=== PATIENT | male | born 1975 | race Caucasian/White ===

== ENCOUNTER 2019-06-04 21:13 | Emergency (ER) | payer OTHER ==
[2019-06-04 21:28] VITALS: BP 145/81; PULSE 105; TEMP 98.5
[2019-06-04] MEDS ORDERED: DIPHTH,PERTUSS(ACELL),TET 0.5 ML DISP.SYRIN IM ONE ×2 (21:28→21:41)
--- NOTE | 2019-06-04 21:28 | PDOC ---
Rapid Medical Evaluation Time Seen by Provider: 06/04/19 21:26 Medical Evaluation: Allergies Allergy/AdvReac Type Severity Reaction Status Date / Time No Known Allergies Allergy Verified 01/04/12 14:13 06/04/19 21:26 The patient is a 43 y/o M with PMH of NIDDM, HTN presents for a laceration to his L thumb. Pt is L handed. Pt states he cut it on a piece of metal when taking the garbage out. Does not remember last tetanus shot. Exam: 2 cm laceration to the medial L thumb, bleeding controlled Orders: boostrix Pt to proceed to the ER for further evaluation Discharge Disposition - Diagnosis Laceration - Referrals - Patient Instructions - Post Discharge Activity
[2019-06-04] MEDS ORDERED: ACETAMINOPHEN 500 MG TABLET (FP) PO ONE (22:21)
[2019-06-04] MEDS ORDERED: ACETAMINOPHEN 325 MG TABLET (FP) ONE ×2 (22:22→22:23)
--- NOTE | 2019-06-04 22:23 | PDOC ---
History of Present Illness - General Chief Complaint: Laceration Stated Complaint: LACERTION Time Seen by Provider: 06/04/19 21:26 - History of Present Illness Initial Comments: 06/04/19 22:18 43-year-old male with a past medical history of diabetes and hypertension, he states he takes no meds presents for evaluation of a left thumb laceration. He was throwing out trash and lacerated his left thumb on the middle trash can. He is not current on tetanus. Past History - Past Medical History Allergies/Adverse Reactions: Allergies Allergy/AdvReac Type Severity Reaction Status Date / Time No Known Allergies Allergy Verified 06/04/19 21:26 Home Medications: Ambulatory Orders Ibuprofen [Motrin] 600 mg PO Q6H PRN #20 tablet 01/04/12 COPD: No Diabetes: Yes HTN: Yes - Immunization History Immunization Up to Date: Yes - Suicide/Smoking/Psychosocial Hx Smoking Status: No Smoking History: Never smoked Number of Cigarettes Smoked Daily: 0 Review of Systems - Review of Systems Musculoskeletal: Yes: See HPI *Physical Exam - Vital Signs Last Vital Signs Temp Pulse Resp BP Pulse Ox 98.5 F 105 H 18 145/81 97 06/04/19 21:26 06/04/19 21:26 06/04/19 21:26 06/04/19 21:26 06/04/19 21:26 - Physical Exam Comments: 06/04/19 22:19 Left thumb skin color and temperature are normal. There is a L-shaped laceration on the ulnar aspect of the left thumb just distal to the IPJ. There are no gross sensorimotor deficits. Subcutaneous fat is exposed. ED Treatment Course - Medications Given in the ED: ED Medications Discontinued Medications Generic Name Dose Route Start Last Admin Trade Name Freq PRN Reason Stop Dose Admin Diphtheria/Tetanus/Acell Pertussis 0.5 ml 06/04/19 21:28 06/04/19 21:42 Boostrix - IM 06/04/19 21:29 0.5 ml .ONCE ONE Administration Medical Decision Making - Medical Decision Making 06/04/19 22:20 Aseptically, the wound was anesthetized with 1% lidocaine without epinephrine copiously irrigated explored to its base in a bloodless field without identification of foreign body. The wound edges were approximated with 3-0 nylon in a simple interrupted fashion. A dry sterile dressing was placed. This was tolerated well. *DC/Admit/Observation/Transfer Diagnosis at time of Disposition: Laceration - Discharge Dispostion Disposition: HOME Condition at time of disposition: Stable Decision to Admit order: No - Referrals Referrals: El Vargas MD [Staff Physician] - - Patient Instructions Additional Instructions: Please keep the wound clean and dry and the dressing intact for the next 48 hours. After 48 hours remove the dressing and wash the area with soap and water. Leave the area open to air as much as possible if you must go out of the house or work please cover the area with a dry sterile dressing such as a Band- Aid. Do not apply any ointments or creams. Return to the emergency room there be any increasing pain, redness, swelling, or drainage. These may be signs of infection. Suture removal in no less than 10 days He may also follow-up with hand surgery in one to 2 days for a wound check should you have any concerns. Tylenol and motrin as directed for pain control - Post Discharge Activity
== END 2019-06-04 22:28 | disposition home or self-care (01) ==
LOC: JERFT 21:13
PROC: 3E0234Z Introduction of Serum, Toxoid and Vaccine into Muscle, Percutaneous Approach (ICD-10-PCS; principal; 2019-06-04)
PROC: 0HQGXZZ Repair Left Hand Skin, External Approach (ICD-10-PCS; 2019-06-04)
DX: S61.012A Laceration without foreign body of left thumb without damage to nail, initial encounter (principal); W26.8XXA Contact with other sharp object(s), not elsewhere classified, initial encounter; Y93.89 Activity, other specified; Y92.89 Other specified places as the place of occurrence of the external cause; E11.9 Type 2 diabetes mellitus without complications; I10 Essential (primary) hypertension
CPT/HCPCS: 90715; 99281-25

== ENCOUNTER 2019-06-13 15:20 | Emergency (ER) | payer OTHER ==
[2019-06-13 15:45] VITALS: BP 149/77; PULSE 80; TEMP 98.7; BMI 30.9
--- NOTE | 2019-06-13 15:55 | PDOC ---
History of Present Illness - General Chief Complaint: Suture/Staple Removal(Here) Stated Complaint: SUTURE REMOVAL/rash Time Seen by Provider: 06/13/19 15:46 History Source: Patient Past History - Past Medical History Allergies/Adverse Reactions: Allergies Allergy/AdvReac Type Severity Reaction Status Date / Time No Known Allergies Allergy Verified 06/04/19 21:26 Home Medications: Ambulatory Orders Ibuprofen [Motrin] 600 mg PO Q6H PRN #20 tablet 01/04/12 Cephalexin [Keflex] 500 mg PO Q6H #28 capsule 06/13/19 Clobetasol Propionate/Emoll [Clobetasol Emollient 0.05% Crm] 45 gm TP BID #1 cream..g. 06/13/19 Metformin HCl [Glucophage] 500 mg PO BID #60 tablet 06/13/19 COPD: No Diabetes: Yes HTN: Yes - Immunization History Immunization Up to Date: Yes - Suicide/Smoking/Psychosocial Hx Smoking Status: No Smoking History: Never smoked Have you smoked in the past 12 months: No Number of Cigarettes Smoked Daily: 0 Information on smoking cessation initiated: No Hx Alcohol Use: No Drug/Substance Use Hx: No Review of Systems - Review of Systems Constitutional: No: Chills, Fever Integumentary: Yes: Pruritus, Rash Endocrine: Yes: Increased Thirst, Increased Urine *Physical Exam - Vital Signs Last Vital Signs Temp Pulse Resp BP Pulse Ox 98.7 F 80 16 149/77 100 06/13/19 15:41 06/13/19 15:41 06/13/19 15:41 06/13/19 15:41 06/13/19 15:41 - Physical Exam General Appearance: Yes: Appropriately Dressed. No: Apparent Distress HEENT: positive: Normal Voice Neck: positive: Supple Respiratory/Chest: negative: Respiratory Distress Extremity: positive: Other (well healing lac to volar aspect of distal phalanx of L thumb, minimal erythema/ttp to nearby paronychium, no induration) Integumentary: positive: Dry, Warm, Rash (papulovesicular lesions to b/l UEs and torso including linear streaks to LUE, suspicious for poison rachelle dermatitis) Neurologic: positive: Fully Oriented, Alert, Normal Mood/Affect Medical Decision Making - Medical Decision Making 06/13/19 15:57 43 yo M, h/o HTN, DM (has not taken his po meds x 4 years as lost to f/u 2/2 insurance issues), here w/ multiple complaints. Here for suture removal of L thumb. Reports still having some pain and swelling to site. No f/c. Also reports intensely pruritic rash to b/l UEs and torso x 4 days after working in his garden. Concerned for poison rachelle per pt see exam Suture removal to L thumb 5 sutures removed Will start on abx given minimal erythema/ttp to paronychium (no need for I&D) and h/o NIDDM, non-compliant w/ meds FS here 265 Will refill metformin and encourage PMD f/u (now has insurance) Poison rachelle dermatitis Dc w/ steroid F/u as needed *DC/Admit/Observation/Transfer Diagnosis at time of Disposition: Visit for suture removal, Poison rachelle dermatitis, Medication refill - Discharge Dispostion Disposition: HOME Condition at time of disposition: Good - Prescriptions Prescriptions: Cephalexin [Keflex] 500 mg PO Q6H #28 capsule Clobetasol Propionate/Emoll [Clobetasol Emollient 0.05% Crm] 45 gm TP BID #1 cream..g. Metformin HCl [Glucophage] 500 mg PO BID #60 tablet - Referrals - Patient Instructions Printed Discharge Instructions: Complications of Type 2 Diabetes, DI for Suture Removal, DI for Poison Rachelle Allergy Additional Instructions: Take medication and return to ED in 2 days for wound check of your thumb Please take your metformin and get yourself a new doctor who can continue to monitor and manage your diabetes - Post Discharge Activity
== END 2019-06-13 17:21 | disposition home or self-care (01) ==
LOC: JERFT 15:20
DX: Z48.817 Encounter for surgical aftercare following surgery on the skin and subcutaneous tissue (principal); Z48.02 Encounter for removal of sutures; L23.7 Allergic contact dermatitis due to plants, except food; Z76.0 Encounter for issue of repeat prescription; I10 Essential (primary) hypertension; E11.9 Type 2 diabetes mellitus without complications; Z79.84 Long term (current) use of oral hypoglycemic drugs
CPT/HCPCS: 82962; 99281-25

== ENCOUNTER 2021-01-21 19:32 | Inpatient (IN) | payer OTHER ==
[2021-01-21] MEDS ORDERED: SODIUM CHLORIDE 1,000 ML IV STA (19:51)
[2021-01-21] MEDS ORDERED: ONDANSETRON 4 MG/2 ML VIAL IVPUSH ONE (19:51)
[2021-01-21] MEDS ORDERED: ONDANSETRON 4 MG/2 ML VIAL ONE (19:52)
[2021-01-21 20:18] LABS: BASO % 3.9 % (0-2.0); EOS % 0.1 % (0-4.5); HEMATOCRIT 47.6 % (35.4-49); HEMOGLOBIN 16.7 GM/dl (11.7-16.9); LYMPH % 12.1 % (8-40); MCH 30.8 pg (25.7-33.7); MCHC 35.1 g/dl (32.0-35.9); MEAN CELL VOLUME 87.8 fl (80-96); MEAN PLT VOLUME 8.4 fl (7.5-11.1); MONO % 8.2 % (3.8-10.2); NEUT % 75.7 % (42.8-82.8); PLATELET COUNT 255 K/MM3 (134-434); RBC 5.42 M/mm3 (4.00-5.60); RDW 12.1 % (11.9-15.9); WHITE BLOOD COUNT 15.3 K/mm3 (4.0-10.8)
[2021-01-21 20:45] LABS: ALBUMIN 4.4 g/dl (3.4-5.0); BILIRUBIN,TOTAL 1.6 mg/dl (0.2-1); CALCIUM 9.1 mg/dl (8.5-10); CREATININE 0.6 mg/dl (0.55-1.3); TOT PROT 7.7 g/dl (6.4-8.2)
[2021-01-21] MEDS ORDERED: KETOROLAC TROMETHAMINE 30 MG/1 ML VIAL IVPUSH ONE (21:20)
[2021-01-21] MEDS ORDERED: KETOROLAC TROMETHAMINE 30 MG/1 ML VIAL ONE (21:23)
[2021-01-21] MEDS ORDERED: PIPERACILLIN/TAZOB 3.375 GM 3.375 GM in DEXTROSE 5%-WATER - 50 ML IVPB ONE (23:28)
[2021-01-21] MEDS ORDERED: PIPERACILLIN/TAZOBACTAM 3.375 GM VIAL IVPB ONE (23:32)
[2021-01-22] MEDS ORDERED: ONDANSETRON 4 MG/2 ML VIAL IVPUSH PRN (01:36)
[2021-01-22] MEDS ORDERED: MORPHINE SULFATE 2 MG/ML VIAL IVPUSH PRN (01:36)
[2021-01-22] MEDS ORDERED: SODIUM CHLORIDE 1,000 ML IV SCH ×2 (01:45→12:42)
[2021-01-22] MEDS: ACETAMINOPHEN 1000 MG/100 ML VIAL (NON FORMULARY) IVPB PRN ×3 (02:30→16:00)
[2021-01-22 03:01] VITALS: BMI 32.1
[2021-01-22] MEDS ORDERED: PIPERACILLIN/TAZOBACTAM 3.375 GM VIAL IVPB ONE (06:05)
[2021-01-22] MEDS ORDERED: DEXTROSE 5%-WATER - 50 ML IVPB ONE (06:05)
[2021-01-22] MEDS: INSULIN SLIDING SCALE (NOVOLOG) 1 VIAL SQ SCH ×2 (06:39→13:18)
[2021-01-22] MEDS ORDERED: PIPERACILLIN/TAZOB 3.375 GM 3.375 GM in DEXTROSE 5%-WATER - 50 ML IVPB SCH ×2 (07:00→18:00)
[2021-01-22] MEDS ORDERED: morphine CARPU-JECT 4 MG/1 ML DISP.SYRIN IVPUSH STA (11:17)
[2021-01-22] MEDS ORDERED: morphine SULFATE 4 MG/ML VIAL ONE (11:27)
[2021-01-22 12:19] LABS: BASO % 2.3 % (0-2.0); EOS % 0.5 % (0-4.5); HEMATOCRIT 44.9 % (35.4-49); HEMOGLOBIN 15.7 GM/dl (11.7-16.9); LYMPH % 12.1 % (8-40); MCH 31.1 pg (25.7-33.7); MEAN CELL VOLUME 88.9 fl (80-96); MONO % 8.7 % (3.8-10.2); NEUT % 76.4 % (42.8-82.8); PLATELET COUNT 231 K/MM3 (134-434); RBC 5.05 M/mm3 (4.00-5.60); RDW 12.2 % (11.9-15.9)
[2021-01-22 12:40] LABS: ALBUMIN 3.9 g/dl (3.4-5.0); BILIRUBIN,DIRECT 0.5 mg/dL (0.0-0.2); BILIRUBIN,TOTAL 2.9 mg/dl (0.2-1); CREATININE 0.5 mg/dl (0.55-1.3); MAGNESIUM 2.5 mg/dL (1.8-2.4); TOT PROT 6.9 g/dl (6.4-8.2)
[2021-01-22] MEDS ORDERED: SODIUM CHLORIDE 1,000 ML IV STA (12:42)
[2021-01-22] MEDS ORDERED: morphine SULFATE 4 MG/ML VIAL IVPUSH ONE (12:45)
[2021-01-22 14:09] VITALS: BP 138/76; PULSE 90; TEMP 98.9
== END 2021-01-22 16:23 | disposition left against medical advice (07) ==
LOC: FER 19:32 → FM/S 01-22 01:41
PROVIDERS: ADMIT Hospitalist; ATTEND Nurse Practitioner Acute Care
DX: K80.00 Calculus of gallbladder with acute cholecystitis without obstruction (principal); I10 Essential (primary) hypertension; E11.9 Type 2 diabetes mellitus without complications
CPT/HCPCS: 36415; 71045-TC-FY; 74177-TC; 76705-TC; 80048; 80053; 80076; 81003; 82962; 83605; 83690; 83735; 85025; 87040; 93005; 99285-25; C9803; J0131; Q9967; U0003; U0005

== ENCOUNTER 2023-02-16 19:59 | Emergency (ER) | payer OTHER ==
[2023-02-16 20:12] VITALS: BP 118/70; PULSE 107; RESP 18; TEMP 98; BMI 30.9
[2023-02-16] MEDS ORDERED: KETOROLAC TROMETHAMINE 15 MG/ML VIAL IVPUSH ONE (21:23)
[2023-02-16] MEDS ORDERED: KETOROLAC TROMETHAMINE 15 MG/ML VIAL ONE (21:34)
[2023-02-16 22:03] LABS: BASO % 0.6 % (0-2.0); EOS % 3.8 % (0-4.5); HEMATOCRIT 40.9 % (35.4-49); HEMOGLOBIN 14.2 GM/dL (11.7-16.9); LYMPH % 35.3 % (8-40); MCH 29.3 pg (25.7-33.7); MCHC 34.7 g/dl (32.0-35.9); MEAN CELL VOLUME 84.6 fl (80-96); MEAN PLT VOLUME 7.9 fl (7.5-11.1); MONO % 10.6 % (3.8-10.2); NEUT % 49.7 % (42.8-82.8); PLATELET COUNT 232 10^3/uL (134-434); RBC 4.84 M/mm3 (4.00-5.60); RDW 13.4 % (11.9-15.9); WHITE BLOOD COUNT 9.1 K/mm3 (4.0-10.0)
[2023-02-16] MEDS ORDERED: DALBAVANCIN HCL 1,500 MG in DEXTROSE 5%-WATER - 500 ML IVPB ONE (22:19)
[2023-02-16 22:23] LABS: CHLORIDE 105 mmol/L (98-107); POTASSIUM 3.8 mmol/L (3.5-5.1); SODIUM 138 mmol/L (136-145)
[2023-02-16 22:26] LABS: ALBUMIN 3.7 g/dl (3.4-5.0); CALCIUM 8.8 mg/dL (8.5-10.1)
[2023-02-16 22:27] LABS: ANION GAP 3 MMOL/L (8-16); BLOOD UREA NITROGEN 15.8 mg/dL (7-18); CO2 30 mmol/L (21-32); GLUCOSE,RANDOM 105 mg/dL (74-106)
[2023-02-16 22:30] LABS: CREATININE 0.7 mg/dL (0.55-1.3); SGOT/AST 14 U/L (15-37); SGPT/ALT 21 U/L (13-61)
[2023-02-16 22:31] LABS: BILIRUBIN,TOTAL 1.4 mg/dL (0.2-1); TOT PROT 6.9 g/dl (6.4-8.2)
[2023-02-16 22:33] LABS: ALK PHOS 76 U/L (45-117)
[2023-02-16] MEDS ORDERED: DALBAVANCIN HCL 500 MG VIAL (RESTRICTED TO ID ONLY) IVPB ONE (22:54)
[2023-02-16] MEDS ORDERED: ONDANSETRON 4 MG/2 ML VIAL ONE (23:22)
[2023-02-16] MEDS ORDERED: ONDANSETRON 4 MG/2 ML VIAL IVPUSH ONE (23:34)
== END 2023-02-16 23:35 | disposition home or self-care (01) ==
LOC: JER 19:59
PROC: 3E033GC Introduction of Other Therapeutic Substance into Peripheral Vein, Percutaneous Approach (ICD-10-PCS; principal; 2023-02-16)
PROC: 3E033GC Introduction of Other Therapeutic Substance into Peripheral Vein, Percutaneous Approach (ICD-10-PCS; 2023-02-16)
PROC: 3E033GC Introduction of Other Therapeutic Substance into Peripheral Vein, Percutaneous Approach (ICD-10-PCS; 2023-02-16)
DX: M79.641 Pain in right hand (principal); R22.31 Localized swelling, mass and lump, right upper limb; L03.011 Cellulitis of right finger
CPT/HCPCS: 36415; 73130-TC-RT-FY; 80053; 85025; 86140; 99284-25; J0875

== ENCOUNTER 2023-11-15 13:23 | Emergency (ER) | payer OTHER ==
[2023-11-15 13:33] VITALS: BP 138/87; PULSE 103; RESP 19; TEMP 98.2; BMI 26.2
[2023-11-15] MEDS ORDERED: LIDOCAINE HCL 1%, 10 MG/ML (20ML VIAL) ONE (13:42)
[2023-11-15] MEDS: LIDOCAINE HCL 1%, 10 MG/ML (50 mL VIAL) SQ ONE (13:42)
[2023-11-15] MEDS: ACETAMINOPHEN 325 MG TABLET (FP) PO ONE (15:10)
[2023-11-15] MEDS ORDERED: ACETAMINOPHEN 500 MG TABLET (FP) ONE (15:11)
== END 2023-11-15 17:26 | disposition home or self-care (01) ==
LOC: JERFT 13:23
PROC: 0HQFXZZ Repair Right Hand Skin, External Approach (ICD-10-PCS; principal; 2023-11-15)
DX: S68.620A Partial traumatic transphalangeal amputation of right index finger, initial encounter (principal); S61.212A Laceration without foreign body of right middle finger without damage to nail, initial encounter; W31.2XXA Contact with powered woodworking and forming machines, initial encounter
CPT/HCPCS: 73130-TC-RT-FY; 99283-25